=== PATIENT | male | born 1960 | race African-American/Black ===

== ENCOUNTER 2018-06-12 19:31 | Inpatient (IN) | payer OTHER ==
[~2018-06-12 19:31] MED LIST: ISOVUE-370 76%-LOCM 1 ML ONE
[2018-06-12] MEDS ORDERED: Magnesium 2 GM/NS 0.9% 100 ML 2 GM in Premix Bag 1 BAG IVPB ONE (20:30)
[2018-06-12] MEDS ORDERED: Magnesium Sulfate 2 GM/100 ML BAG ONE (20:32)
[2018-06-12] MEDS ORDERED: Dexamethasone 4 mg/ml Vial SLOW IVP SCH (21:00)
[2018-06-12 22:47] VITALS: BMI 16.1
[2018-06-12] MEDS ORDERED: Ondansetron ODT 4 MG TAB SL PRN (22:51)
[2018-06-12] MEDS ORDERED: Ondansetron HCl/PF 4 MG/2 ML Vial IVP PRN (22:51)
[2018-06-12] MEDS ORDERED: Sodium Chloride 0.9% 1,000 ML IV SCH (22:51)
--- NOTE | 2018-06-12 22:55 | CT ---
CT CHEST WITH CONTRAST: 06/12/18 HISTORY: Shortness of breath. Pneumonia. COMPARISON: Chest radiograph same day. FINDINGS: There is moderate background emphysema. There is volume loss in the right middle lobe with concern fo r underlying large mass. This is increased from the comparison in 2016 CT which measured approximatel y 1.6 cm in size. The majority of the right middle lobe collapse is due to infiltrative malignancy. T here is some calcification within this mass. This lesion measures 5.1 x 6.2 cm on axial image 38. Th ere is endobronchial extension of tumor. There are large mediastinal lymph nodes. Right paratracheal lymph nodes measure up to 3.2 x 3 cm in size. An index subcarinal lymph node measures up to 3.3 x 2.5 cm. Axial image 27. There is a mass in the left lobe of the liver with extension and chronic peripheral enhancement measu ring 3.6 x 3.4 cm axial image 56. Posttreatment changes of the left upper lobe. Small effusion on the right. Pulmonary trunk upper limi ts of normal measuring just under 3 cm in size. No thoracic spine compression fracture. There is a healing right 8th rib fracture. No prior left 3rd and 4th rib removal from thoracotomy changes. IMPRESSION: Large right middle lobe malignant process with index lesion measured as above. There is also extensiv e large mediastinal adenopathy as well as hepatic metastatic disease. POS: [facility]
[2018-06-13] MEDS ORDERED: Senokot 8.6 MG TAB PO PRN (01:40)
[2018-06-13] MEDS ORDERED: Mag-Al 1200 mg/1200 mg/30 ML UDCUP PO PRN (01:40)
[2018-06-13] MEDS ORDERED: Calcium Carbonate 500 MG ChewTAB PO PRN (01:40)
[2018-06-13] MEDS ORDERED: Milk Of Magnesia 30 ML UDCUP PO PRN (01:40)
[2018-06-13] MEDS ORDERED: Nitroglycerin 0.4 MG TAB (25 Tab Bottle) PO PRN (01:40)
[2018-06-13] MEDS ORDERED: hydrALAZINE 20 MG/ML VIAL SLOW IVP PRN (01:44)
[2018-06-13] MEDS ORDERED: Sodium Chloride 0.9% 1,000 ML IV SCH ×2 (01:45→08:00)
--- NOTE | 2018-06-13 02:03 | HP ---
DATE OF ADMISSION: 06/12/2018 Patient was seen and examined on 06/12/2018. CHIEF COMPLAINT: Fever, chills with cough of 3 days' duration. 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 Over the last three days, patient developed gradual worsening cough that was productive of thick-faith sputum. He felt feverish and had chills. He did not record his temperature. He also had shortness of breath and wheezing. Shortness of breath was worse on moderate exertion. He also had some gener alized weakness and fatigue. He has lost approximately 20-30 pounds over the last 6 months to a year per patient report. His appetite is normal. PAST MEDICAL HISTORY: 1. Coronary artery disease, status post non-ST elevation [place] requiring stent placement in 10/2011. 2. Left upper lobe adenocarcinoma as discussed above, status post left upper lobectomy by Dr. Qureshi in 2011. 3. GERD. 4. History of tobacco abuse. PAST SURGICAL HISTORY: 1. Cardiac catheterization. 2. Left upper lobectomy. ALLERGIES: No known drug allergies. CURRENT HOME MEDICATIONS: He is unable to recall any of his home medications. Family to bring accur ate list of medications. SOCIAL HISTORY: Patient currently smokes up to half pack a day. He drinks alcohol socially. He has a history of cannabis abuse in the past. FAMILY HISTORY: Positive for hypertension. Cancer also runs in his family. REVIEW OF SYSTEMS: The following complete review of systems was negative, unless otherwise mentioned in the HPI or below: Constitutional: Weight loss or gain, ability to conduct usual activities. Sk in: Rash, itching. Eyes: Double vision, pain. ENT/Mouth: Nose bleeding, neck stiffness, pain, te nderness. Cardiovascular: Palpitations, dyspnea on exertion, orthopnea. Respiratory: Shortness of breath, wheezing, cough, hemoptysis, fever, or night sweats. Gastrointestinal: Poor appetite, abdo gina pain, heartburn, nausea, vomiting, constipation, or diarrhea. Genitourinary: Urgency, frequen cy, dysuria, nocturia. Musculoskeletal: Pain, swelling. Neurologic/Psychiatric: Anxiety, depressi on. Allergy/Immunologic: Skin rash, bleeding tendency. PHYSICAL EXAMINATION: VITAL SIGNS: In the emergency room showed temperature 99.1, respiration 30, pulse rate of 115 with a blood pressure 167/109 with O2 saturation of 89% on room air. GENERAL: A 58-year-old male, thin built, in no apparent distress. HEENT: Head atraumatic, normocephalic. Sclerae anicteric. Moist mucous membrane. No oral lesion. NECK: Supple, no JVD appreciated. No carotid bruit. LUNGS: Showed bilateral rhonchi with scattered rales. No wheezing appreciated. There was mild acce ssory muscle use. Healed scar from left upper lobectomy noted. HEART: S1, S2 present. Tachycardic. No rubs or gallops. SKIN: Warm and dry. ABDOMEN: Soft, nontender, bowel sounds present. EXTREMITIES: No edema or calf tenderness. NEUROLOGIC: Grossly nonfocal, moves all four extremities. PSYCHIATRY: Alert, awake, oriented x3. LYMPH NODES: No palpable lymph nodes in the neck. PERIPHERAL VASCULAR: Radial pulses palpable bilaterally. MUSCULOSKELETAL: No joint swelling or tenderness. LABORATORY AND X-RAY FINDINGS: CBC showed WBC 5.9 with hemoglobin 16.1, hematocrit 44.8, platelet 15 7. Chemistry showed sodium 131, potassium 4.8, chloride 100, bicarb 19, BUN 5, creatinine 0.68. BNP was 136. Troponin was negative. Urinalysis was negative for wbc, bacteria. Blood cultures have be en sent and pending at this time. CT scan of the lung by my review showed large right middle lobe malignant process with extensive larg e mediastinal adenopathy, hepatic metastatic disease with infiltrate. Chest x-ray by my review showed right middle lobe infiltrate/atelectasis with small pleural effusion. IMPRESSION: 1. Sepsis secondary to community-acquired pneumonia, suspected pneumococcus. 2. Abnormal CT scan of the chest with right middle lobe malignant process with mediastinal adenopath y as well as hepatic mass. Postobstructive pneumonia is most likely suspected. 3. Ongoing tobacco abuse. 4. Coronary artery disease, status post stent placement to the proximal circumflex as well as distal right coronary artery in 2011. 5. Acute hypoxic respiratory failure secondary to #1. 6. Significant weight loss more than 20-30 pounds. 7. History of left upper lobe poorly differentiated invasive lung adenocarcinoma, status post left u pper lobectomy as well as chemotherapy per Dr. Lerma. PLAN: 1. Patient will be monitored on the medical floor. Pulmonary and Oncology team will be consulted. We will start him on Zosyn and Levaquin. 2. Breathing treatments. O2 supplementation. A.m. labs. Walking program. Consult dietitian. 3. Plan of care was discussed with the patient in detail. He stated understanding. 4. Code status confirmed with the patient. FULL CODE. 5. Palliative care team will be consulted as well.
[2018-06-13] MEDS: Piperacillin/Tazobactam 3.375 GM in Sodium Chloride 0.9% 100 ML IVPB SCH ×4 (03:08→20:36)
[2018-06-13 04:33] LABS: #Lymphocytes 0.6 thou/uL (1.20-3.40); #Monocytes 0.2 thou/uL (0.11-0.59); #Neutrophils 4.1 thou/uL (1.40-6.50); %Basophils 0.2 % (0.0-1.0); %Eosinophils 0.2 % (0.0-10.0); %Lymphocytes 12.1 % (21.0-51.0); %Monocytes 4.9 % (0.0-10.0); %Neutrophils 82.6 % (42.0-75.0); Hemoglobin 14.9 g/dL (14.0-18.0); Mean Corpuscular HGB CONC 34.6 g/dL (32.0-36.0); Mean Corpuscular Hemoglobin 31.8 pg (27.0-31.0); Mean Corpuscular Volume 91.9 fL (78.0-98.0); Mean Platelet Volume 8.1 fL (7.4-10.4); Platelet Count 159 thou/uL (130-400); RBC Distribution Width 12.9 % (11.5-14.5); Red Blood Cell (RBC) Count 4.68 mill/uL (4.70-6.10)
[2018-06-13 04:39] LABS: Anion Gap 12 mmol/L (10-20); BUN (Urea Nitrogen) 5 mg/dL (8.4-25.7); Calc. Creatinine Clearance 77 mL/min (70-130); Calcium 8.5 mg/dL (7.8-10.44); Carbon Dioxide 26 mmol/L (22-29); Chloride 98 mmol/L (98-107); Estimated GFR-MDRD Greater than 90; Glucose 208 mg/dL (70-105); Potassium 4.2 mmol/L (3.5-5.1); Sodium 132 mmol/L (136-145)
[2018-06-13] MEDS: Docusate 100 MG CAP PO SCH ×2 (07:49→20:37)
[2018-06-13] MEDS: Famotidine 20 MG TAB PO SCH ×3 (07:49→20:36)
[2018-06-13] MEDS: Aspirin 81 mg Enteric Coated Tablet PO SCH ×2 (07:49→13:58)
[2018-06-13] MEDS ORDERED: Lidocaine 4% PF 5 ML AMP NEB SCH (08:00)
[2018-06-13] MEDS ORDERED: Chloraseptic Spray 180 ml Bottle PO PRN (08:04)
[2018-06-13] MEDS ORDERED: Eucerin (Mineral Oil/Petrolatum,White) 30 gm Jar TOP PRN (08:04)
[2018-06-13] MEDS ORDERED: Temazepam 15 MG CAP PO PRN (08:04)
[2018-06-13] MEDS ORDERED: Artificial Tears 18 DROP/0.9 ML EA EYE PRN (08:04)
[2018-06-13] MEDS ORDERED: Loratadine 10 MG TAB PO PRN (08:04)
[2018-06-13] MEDS ORDERED: Loperamide HCl 2 MG CAP PO PRN (08:04)
[2018-06-13] MEDS ORDERED: Acetaminophen 325 MG TAB PO PRN (08:04)
[2018-06-13] MEDS ORDERED: Sodium Chloride 0.65% Nasal 44 ML BOT EA NARE PRN (08:04)
[2018-06-13] MEDS ORDERED: HYDROcodone/Acetaminophen 5/325 mg Tablet PO PRN (08:04)
[2018-06-13] MEDS ORDERED: Diabetic Tussin 200 MG/10 ML UDCUP PO PRN (08:04)
[2018-06-13] MEDS ORDERED: Ondansetron HCl/PF 4 MG/2 ML Vial IVP PRN ×2 (08:06→10:45)
[2018-06-13] MEDS ORDERED: Ondansetron ODT 4 MG TAB PO PRN (08:06)
--- NOTE | 2018-06-13 08:08 | CON ---
DATE OF CONSULTATION: 06/13/2018 CONSULTING PHYSICIAN: Dr. Kunz REASON FOR CONSULTATION: Lung mass. HISTORY OF PRESENT ILLNESS: The patient is a 58-year-old male who presents with subacute weight loss , productive cough and generalized fatigue. He underwent a CT last night which showed collapse of th e right middle lobe with significant mediastinal lymphadenopathy and liver metastasis. He has a prev ious history of lung cancer from 2011. At that time, he was seen by Dr. Rothman and Dr. Qureshi. He had a left upper lobe lung cancer with chest wall invasion and required left lower lobe decortication, i n addition, a left upper lobectomy and partial chest wall resection. It is not clear to me what type of Oncology follow up he got afterward. The patient has lost a significant amount of weight in the last several months. He is currently 5 feet 11 inches, weighs 109 pounds. PAST MEDICAL HISTORY: 1. Lung cancer - adenocarcinoma. 2. Coronary artery disease. 3. Gastroesophageal reflux. 4. Tobacco abuse. PAST SURGICAL HISTORY: Cardiac catheterization. Left upper lobectomy. ALLERGIES: None. MEDICATIONS: The patient says he thinks he is on a blood thinner, but he has not taken it in several days. Remainder of medications are not known at this time. SOCIAL HISTORY: He is a half pack per day smoker. He drinks alcohol socially. He has used marijuan a in the past. FAMILY MEDICAL HISTORY: Remarkable for hypertension and cancer. REVIEW OF SYSTEMS: Unremarkable except for the weight loss and failure to thrive. PHYSICAL EXAMINATION: VITAL SIGNS: Temperature 98.4, pulse 86, respiration 16, O2 sat 95% on 1.5 liters, blood pressure 14 4/66. GENERAL: He is awake and alert and in no distress. HEENT: Remarkable for bitemporal wasting. NECK: Without adenopathy or JVD. LUNGS: Clear breath sounds without wheezing or rhonchi. There are a few scattered crackles in the r ight mid chest. CARDIAC: S1, S2, slightly tachycardic, 2/6 systolic murmur left sternal border. ABDOMEN: Soft, nontender. I cannot feel his liver edge. EXTREMITIES: No clubbing, cyanosis, or edema. LABORATORY AND X-RAY FINDINGS: White blood cell count 5, hematocrit 43, platelet count 159. Sodium 132, potassium 4.2, chloride 98, CO2 26, BUN 5, creatinine 0.7, glucose 208. CT: I reviewed the CT personally. He has almost total collapse of the right middle lobe. He has lucas bcarinal lymphadenopathy, he has right peritracheal lymphadenopathy. There is a metastatic lesion pr esent in the left lobe of the liver. ASSESSMENT: 1. Recurrent versus new lung cancer. PLAN: 1. Bronchoscopy with biopsy today. Discussed risk with the patient and he is agreeable to proceed. 2. Check coagulation parameters. 3. Further disposition to follow.
[2018-06-13 08:31] LABS: PTT 29.8 SEC (22.9-36.1); Prothrombin Time 12.8 SEC (12.0-14.7)
[2018-06-13] MEDS ORDERED: Dexamethasone 4 mg/ml Vial SLOW IVP SCH (09:00)
[2018-06-13] MEDS ORDERED: Heparin 5,000 UNITS/ML VIAL SC SCH (09:00)
[2018-06-13] MEDS ORDERED: Fentanyl 100 MCG/2 ML VIAL ONE (09:23)
[2018-06-13] MEDS ORDERED: Lidocaine 1% (PF) 30 ML VIAL ONE (09:32)
[2018-06-13] MEDS ORDERED: PROPOFOL 200 MG/20 ML VIAL ONE (10:21)
[2018-06-13] MEDS ORDERED: Succinylcholine Chloride 20 MG/ML 10 ml SYRINGE FS ONE (10:21)
[2018-06-13] MEDS ORDERED: PHENYLEPHRINE-NS 100 MCG/ML 10 ML SYRINGE ONE (10:21)
[2018-06-13] MEDS ORDERED: Esmolol 100 MG/10 ML VIAL ONE (10:21)
[2018-06-13] MEDS ORDERED: Dexamethasone 20 MG/5 ML VIAL ONE (10:21)
[2018-06-13] MEDS ORDERED: Lidocaine 1% PF 5 ML VIAL ONE (10:21)
[2018-06-13] MEDS ORDERED: Ondansetron HCl/PF 4 MG/2 ML Vial ONE (10:21)
[2018-06-13] MEDS ORDERED: Promethazine HCl 25 MG/ML VIAL SLOW IVP PRN (10:45)
[2018-06-13] MEDS ORDERED: Promethazine HCl 25 MG/ML VIAL IM PRN (10:45)
--- NOTE | 2018-06-13 11:18 | OP ---
PROCEDURE: Fiberoptic bronchoscopy. PREOPERATIVE DIAGNOSIS: Right middle lobe lung mass. POSTOPERATIVE DIAGNOSIS: Right middle lobe lung mass. ANESTHESIA: General endotracheal. DESCRIPTION OF PROCEDURE: The patient signed the informed consent prior to the procedure. He unders tood the risks involved including bleeding, infection, and accidental lung puncture. He agreed to pr oceed. The patient was placed on cardiopulmonary monitoring. He was intubated with an 8.0 endotracheal tube by Anesthesia. An adaptor was placed on the endotracheal tube and he was placed on a ventilator. T he bronchoscope was placed in the endotracheal tube. The sharee was sharp. The left mainstem bronch us was normal in appearance. The left upper lobe was absent due to previous surgery. The left lower lobe was normal in appearance aside from some mucoid secretions. The right mainstem bronchus was no rmal to the level of the bronchus intermedius. The right upper lobe was normal in appearance. The r ight lower lobe was normal in appearance. There was a pedunculated mass in the right middle lobe. T his mass was necrotic and was obstructing about 90% of the lumen. A series of endobronchial biopsies were obtained and sent for pathology. Brushings were also obtained. Washings were then obtained. He was sent to the recovery area in stable condition.
--- NOTE | 2018-06-13 13:06 | PDOC.PN ---
- Subjective Encounter Start Date: 06/13/18 Encounter Start Time: 13:03 -: old records requested/rev Patient seen and examined. No overnight events pt now feels better, he walked well, he has very poor apatite, - Objective Resuscitation Status: Resuscitation Status FULL:Full Resuscitation MAR Reviewed: Yes Vital Signs & Weight: Vital Signs (12 hours) Temp Pulse Resp BP Pulse Ox 06/13/18 12:16 86 16 97 06/13/18 11:45 98.0 F 84 20 134/79 98 06/13/18 08:00 98.4 F 86 16 95 06/13/18 06:18 95 06/13/18 06:16 86 16 95 06/13/18 04:40 98.4 F 89 16 144/66 H 96 06/13/18 02:30 89 16 96 Weight Weight 109 lb 1 oz Result Diagrams: 06/13/18 04:00 06/13/18 04:00 Radiology Reviewed by me: Yes (CT chest) Phys Exam - Physical Examination Constitutional: NAD HEENT: PERRLA, moist MMs, sclera anicteric Neck: no JVD, supple Respiratory: no wheezing, no rales, no rhonchi right side rales, reduced air entry both side Cardiovascular: RRR, no significant murmur, no rub Gastrointestinal: soft, non-tender, no distention, positive bowel sounds Musculoskeletal: no edema, pulses present Neurological: non-focal, normal sensation Lymphatic: no nodes Psychiatric: normal affect Skin: no rash, normal turgor Dx/Plan (1) Acute respiratory failure with hypoxia Code(s): J96.01 - ACUTE RESPIRATORY FAILURE WITH HYPOXIA Status: Acute (2) Liver metastasis Code(s): C78.7 - SECONDARY MALIG NEOPLASM OF LIVER AND INTRAHEPATIC BILE DUCT Status: Acute (3) Mass of middle lobe of right lung Code(s): R91.8 - OTHER NONSPECIFIC ABNORMAL FINDING OF LUNG FIELD Status: Acute (4) Mediastinal lymphadenopathy Code(s): R59.0 - LOCALIZED ENLARGED LYMPH NODES Status: Acute (5) Postobstructive pneumonia Code(s): J18.9 - PNEUMONIA, UNSPECIFIED ORGANISM Status: Acute (6) CAD (coronary artery disease) Code(s): I25.10 - ATHSCL HEART DISEASE OF [place] CORONARY ARTERY W/O ANG PCTRS Status: Chronic (7) COPD (chronic obstructive pulmonary disease) Status: Chronic (8) H/O malignant neoplasm of lung Code(s): Z85.118 - PERSONAL HISTORY OF MALIGNANT NEOPLASM OF BRONCHUS AND LUNG Status: Chronic Comment: left upper lobe adenocarcinoma, s/p lobectomy in 2012 (9) Protein-calorie malnutrition, moderate Code(s): E44.0 - MODERATE PROTEIN-CALORIE MALNUTRITION Status: Chronic (10) Tobacco abuse Code(s): Z72.0 - TOBACCO USE Status: Chronic - Plan cont current plan of care, plan discussed w/ family, continue antibiotics, respiratory therapy * continue current IV antibiotics as below, zosyn and levaquin * add mucinex * continue duoneb * nutritional supplement * medication reviewed as below * symptomatic treatment * s/p bronchoscopy and biopsy, follow on pathology report. * discussed with family bedside Review of Systems - Review of Systems Constitutional: weakness. negative: fever, chills, sweats, malaise, other Eyes: negative: Pain, Vision Change, Conjunctivae Inflammation, Eyelid Inflammation, Redness, Other ENT: negative: Ear Pain, Ear Discharge, Nose Pain, Nose Discharge, Nose Congestion, Mouth Pain, Mouth Swelling, Throat Pain, Throat Swelling, Other Respiratory: Cough, Shortness of Breath, SOB with Excertion Cardiovascular: negative: chest pain, palpitations, orthopnea, paroxysmal nocturnal dyspnea, edema, light headedness, other Gastrointestinal: negative: Nausea, Vomiting, Abdominal Pain, Diarrhea, Constipation, Melena, Hematochezia, Other Genitourinary: negative: Dysuria, Frequency, Incontinence, Hematuria, Retention , Other Musculoskeletal: negative: Neck Pain, Shoulder Pain, Arm Pain, Back Pain, Hand Pain, Leg Pain, Foot Pain, Other Skin: negative: Rash, Lesions, Colin, Bruising, Other - Medications/Allergies Allergies/Adverse Reactions: Allergies Allergy/AdvReac Type Severity Reaction Status Date / Time No Known Allergies Allergy Verified 06/12/18 23:29 Medications: Current Medications Acetaminophen (Tylenol) 650 mg PO Q4H PRN PRN Reason: Headache/Fever or Mild Pain Hydrocodone Bitart/Acetaminophen ([place] 5/325) 1 tab PO Q4H PRN PRN Reason: Moderate Pain (4-6) Al Hydroxide/Mg Hydroxide (Maalox) 30 ml PO Q6H PRN PRN Reason: Heartburn or Indigestion Albuterol/Ipratropium (Duoneb) 3 ml NEB [id number] [facility] Last Admin: 06/13/18 12:16 Dose: 3 ml Artificial Tears (Tears Naturale) 0 drop EA EYE PRN PRN PRN Reason: Dry Eyes Aspirin (Ecotrin) 81 mg PO DAILY [facility] Last Admin: 06/13/18 07:49 Dose: Not Given Calcium Carbonate (Tums) 1,000 mg PO Q4H PRN PRN Reason: Heartburn or Indigestion Docusate Sodium (Colace) 100 mg PO BID [facility] Last Admin: 06/13/18 07:49 Dose: Not Given Famotidine (Pepcid) 20 mg PO BID [facility] Last Admin: 06/13/18 07:49 Dose: Not Given Fentanyl (Pacu-Sublimaze) 50 mcg SLOW IVP Q10MIN PRN PRN Reason: Moderate to Severe Pain (6-10) Stop: 06/13/18 13:46 Guaifenesin (Mucinex) 600 mg PO Q12HR [facility] Guaifenesin (Robitussin Sf) 200 mg PO Q4H PRN PRN Reason: Cough Hydralazine HCl (Apresoline) 10 mg SLOW IVP Q4H PRN PRN Reason: SBP Greater Than 180 Levofloxacin 750 mg/ Device 150 mls @ 100 mls/hr IVPB Q24HR [facility] Piperacillin Sod/Tazobactam (Sod 3.375 gm/ Sodium Chloride) 100 mls @ 200 mls/ hr IVPB 0200,0800,1400,2000 [facility] Last Admin: 06/13/18 07:48 Dose: 100 mls Loperamide HCl (Imodium) 2 mg PO PRN PRN PRN Reason: Diarrhea/Loose Stools Loratadine (Claritin) 10 mg PO DAILYPRN PRN PRN Reason: Sinus Symptoms Magnesium Hydroxide (Milk Of Magnesium) 30 ml PO DAILYPRN PRN PRN Reason: Constipation Mineral Oil/White Petrolatum (Eucerin Cream) 0 gm TOP BIDPRN PRN PRN Reason: Dry Skin Nitroglycerin (Nitrostat) 0.4 mg PO Q5MIN PRN PRN Reason: Chest Pain Ondansetron HCl (Zofran Odt) 4 mg PO Q6H PRN PRN Reason: Nausea/Vomiting Ondansetron HCl (Zofran) 4 mg IVP Q6H PRN PRN Reason: Nausea/Vomiting Ondansetron HCl (Pacu-Zofran) 4 mg IVP ONE PRN PRN Reason: Nausea/Vomiting Stop: 06/13/18 13:45 Phenol (Chloraseptic [place] 180 Ml Bot) 0 ml PO PRN PRN PRN Reason: Sore Throat Promethazine HCl (Pacu-Phenergan) 6.25 mg SLOW IVP ONE PRN PRN Reason: Nausea/Vomiting Stop: 06/13/18 13:45 Promethazine HCl (Pacu-Phenergan) 6.25 mg IM ONE PRN PRN Reason: Nausea/Vomiting Stop: 06/13/18 13:45 Saccharomyces Boulardii (Florastor) 250 mg PO DAILY JOSE F Senna (Senokot) 2 tab PO HSPRN PRN PRN Reason: Constipation Sodium Chloride ([place] Nasal [place] 0.65%) 0 ml EA NARE QIDPRN PRN PRN Reason: Nasal Congestion Temazepam (Restoril) 15 mg PO HSPRN PRN PRN Reason: Insomnia
[2018-06-13] MEDS: Saccharomyces boulardii 250 MG CAP PO SCH (13:58)
[2018-06-13] MEDS: guaiFENesin ER 600 MG TAB PO SCH ×2 (13:58→20:36)
[2018-06-13 16:46] LABS: Bilirubin Negative (Negative); Blood, Urine Negative (Negative); Clarity CLEAR (Clear); Glucose, Urine (Dipstick) Negative (Negative); Leukocyte Negative (Negative); Nitrite Negative (Negative); Protein, Urine (Dipstick) 30 mg/dL (Neg-Trace); Specific Gravity, Urine 1.009 (1.002-1.036); Urobilinogen 0.2 mg/dL (0.2-1.0)
[2018-06-13 16:47] LABS: Bacteria/HPF None Seen HPF (None Seen); Hyaline Casts/LPF 0-3 HYALINE CAST LPF (0-3 Hyaline); RBC/HPF 0-3 HPF (0-3); Squamous Epithelial None Seen HPF (0-3); WBC/HPF None Seen HPF (0-3)
--- NOTE | 2018-06-13 21:21 | CON ---
DATE OF CONSULTATION: 06/13/2018 REASON FOR CONSULTATION: Lung mass. HISTORY OF PRESENT ILLNESS: Mr. Troncoso is pleasant 58-year-old -[place]ong[place]ian gentleman with a medic al history of poorly-differentiated invasive adenocarcinoma of the left upper lobe in 2011. He under went a left lobectomy and chemotherapy, he was lost to follow up and has not been seen in the clinic since that time. Over the past several months, he began to lose weight. He was having some fatigue and cough. This past Monday, his cough progressed and he was having some worsening shortness of pedro th, so presented to the emergency room for evaluation. Chest CT showed right middle lobe lesion janell uring 5.1 x 6.2 cm. There was endobronchial extension of the tumor. He had mediastinal lymphadenopa thy. There was a right peritracheal lymph node that measured 3.2 x 3 cm. He also had a subcarinal l ymph node measuring 3.3 x 2.2 cm. There was a mass in the left lobe of the liver measuring 3.[address] Benitez performed a bronchoscopy with biopsy this morning, which is currently pending. PAST MEDICAL HISTORY: 1. Stage II B nonsmall cell lung cancer status post lobectomy and chemo in 2011. 2. Coronary artery disease. 3. Gastroesophageal reflux disease. 4. Tobacco use. PAST SURGICAL HISTORY: 1. Left upper lobe lobectomy. 2. Cardiac catheterization. ALLERGIES: No known drug allergies. HOME MEDICATIONS: None. FAMILY HISTORY: Noncontributory. SOCIAL HISTORY: Smokes 3-4 cigarettes daily, drinks social alcohol, denies illicit drug use. REVIEW OF SYSTEMS: Constitutional: No fever, chills, night sweats. Positive for 20-pound weight lo ss over the last several months. Eyes: No blurred or double vision. ENT: No pain, hoarseness, sor e throat, dysphagia. Cardiovascular: No chest pain, palpitations or syncope. Respiratory: Positiv e shortness of breath, dyspnea on exertion and cough, no hemoptysis. Gastrointestinal: No nausea, v omiting, diarrhea, constipation or abdominal pain. Genitourinary: No dysuria or hematuria. Musculo skeletal: No joint or back pain. Skin: No rash or pruritus. Hematologic: No bleeding, bruising o r clotting. Neurologic: Positive for weakness, no headache, numbness, tingling or seizure activity. Psychiatric: No anxiety or depression. PHYSICAL EXAMINATION: VITAL SIGNS: Temperature is 98.0, pulse is 86, respiratory rate 16, BP is 134/79. He is 97% on 2 li ters. GENERAL: Thin -Mongolian male in no acute distress. HEENT: Normocephalic, atraumatic. Pupils are equal and reactive to light. Sclerae are injected. NECK: Supple. CARDIOVASCULAR: Regular rate and rhythm. LUNGS: Clear to auscultation. ABDOMEN: Soft, nontender, bowel sounds are positive. EXTREMITIES: No clubbing, cyanosis or edema. SKIN: No rash. HEMATOLOGIC: No petechia or purpura. NEUROLOGICAL: Nonfocal. PSYCHIATRIC: The patient is alert and oriented and appropriate. PERTINENT LABORATORY AND X-RAYS: Current WBCs 5.0, hemoglobin 14.9, hematocrit 43, platelet count 15 9,000. He has got 83% neutrophils, 12% lymphocytes. PT is 12.8, INR is 1.0, PTT is 29.8. Sodium is 132, potassium 4.2, chloride 98, CO2 is 26, BUN is 5, creatinine 0.73, calcium is 8.5, total bilirub in is 0.6, AST is 85, ALT is 54, alkaline phosphatase is 128. BNP is 136.5. Serum total protein is 8.8, albumin 3.6, globulin 5.2. ASSESSMENT: 1. Metastatic lung cancer with liver involvement. 2. History of stage II B nonsmall cell lung cancer status post lobectomy, chemo. DISCUSSION: The patient has had a bronchoscopy with biopsy of his lung lesion that is currently pend ing, was sent for tumor mutations. The patient will have a brain MRI to rule out metastatic disease in the brain. He is a candidate for outpatient chemotherapy. Further recommendations will be based on pathology. Thank you for the consult.
[2018-06-14] MEDS: Piperacillin/Tazobactam 3.375 GM in Sodium Chloride 0.9% 100 ML IVPB SCH ×4 (00:47→20:28)
[2018-06-14 04:18] LABS: #Lymphocytes 1.4 thou/uL (1.20-3.40); #Monocytes 0.9 thou/uL (0.11-0.59); #Neutrophils 6.2 thou/uL (1.40-6.50); %Basophils 0.3 % (0.0-1.0); %Eosinophils 0.1 % (0.0-10.0); %Lymphocytes 16.5 % (21.0-51.0); %Monocytes 10.8 % (0.0-10.0); %Neutrophils 72.3 % (42.0-75.0); Hemoglobin 13.1 g/dL (14.0-18.0); Mean Corpuscular HGB CONC 33.8 g/dL (32.0-36.0); Mean Corpuscular Hemoglobin 31.1 pg (27.0-31.0); Mean Platelet Volume 8.2 fL (7.4-10.4); Platelet Count 155 thou/uL (130-400); Red Blood Cell (RBC) Count 4.21 mill/uL (4.70-6.10); White Blood Cell (WBC) Count 8.6 thou/uL (4.8-10.8)
[2018-06-14 04:42] LABS: ALT (SGPT) 35 U/L (8-55); AST (SGOT) 54 U/L (5-34); Albumin 3.1 g/dL (3.5-5.0); Alkaline Phosphatase 93 U/L (40-150); Anion Gap 15 mmol/L (10-20); BUN (Urea Nitrogen) 9 mg/dL (8.4-25.7); Bilirubin, Total 0.3 mg/dL (0.2-1.2); Calc. Creatinine Clearance 78 mL/min (70-130); Calcium 8.3 mg/dL (7.8-10.44); Carbon Dioxide 23 mmol/L (22-29); Chloride 100 mmol/L (98-107); Estimated GFR-MDRD Greater than 90; Globulin 3.9 g/dL (2.4-3.5); Glucose 111 mg/dL (70-105); Potassium 3.7 mmol/L (3.5-5.1); Sodium 134 mmol/L (136-145)
[2018-06-14] MEDS: Famotidine 20 MG TAB PO SCH ×2 (07:43→20:29)
[2018-06-14] MEDS: Aspirin 81 mg Enteric Coated Tablet PO SCH (07:44)
[2018-06-14] MEDS: Saccharomyces boulardii 250 MG CAP PO SCH (07:44)
[2018-06-14] MEDS: guaiFENesin ER 600 MG TAB PO SCH ×2 (07:44→20:29)
[2018-06-14] MEDS: Docusate 100 MG CAP PO SCH ×2 (07:51→20:29)
--- NOTE | 2018-06-14 08:30 | PRG ---
DATE OF SERVICE: 06/14/2018 The patient feels better today. He is not having as much cough. PHYSICAL EXAMINATION: VITAL SIGNS: Temperature is 98.8, pulse 86, respirations 16, O2 saturation 98%, blood pressure 134/7 4. HEENT: Unremarkable except for bitemporal wasting. NECK: No JVD. LUNGS: Poor air movement on the right, clear on the left. CARDIAC: S1 and S2 regular. ABDOMEN: Soft, nontender. EXTREMITIES: No clubbing, cyanosis, or edema. LABORATORY DATA: White blood cell count 8.6, hematocrit 38.7, platelet count 155. Sodium 134, potas sium 3.7, chloride 100, CO2 23, BUN 9, creatinine 0.7, glucose 111. ASSESSMENT: 1. Lung cancer with mediastinal lymph node and liver involvement. The lung biopsy results from bron choscopy yesterday are pending. 2. Postobstructive pneumonia. PLAN: The patient will continue IV antibiotics. We are waiting pathology results for further dispos ition. Clearly if this is lung cancer, this will have to be treated with chemotherapy and possibly r adiation as he is not a surgical candidate given that this is stage IV disease.
[2018-06-14] MEDS ORDERED: Lorazepam 2 MG/ML VIAL ONE (08:38)
[2018-06-14] MEDS ORDERED: Lorazepam 2 MG/ML VIAL SLOW IVP SCH (09:15)
--- NOTE | 2018-06-14 10:39 | MRI ---
MRI BRAIN WITH AND WITHOUT IV CONTRAST: HISTORY: Metastatic lung cancer. FINDINGS: Exam is limited due to motion artifact. No restricted diffusion is seen. There are a few scattered foci of T2 prolongation in the periventricular white matter, consistent with mild chronic small vesse l ischemic disease. No evidence of infarct, hemorrhage, mass, midline shift, or abnormal extraaxial fluid collections is seen. No abnormal post contrast enhancement is noted. There is mucosal disease in the paranasal sinuses. IMPRESSION: No evidence of intracranial metastatic disease. POS: [facility]
--- NOTE | 2018-06-14 10:47 | PDOC.PN ---
- Subjective Encounter Start Date: 06/14/18 Encounter Start Time: 10:25 Patient seen and examined. No new complaints. No overnight events pt had claustrophobia with MRI so ativan was given - Objective Resuscitation Status: Resuscitation Status FULL:Full Resuscitation MAR Reviewed: Yes Vital Signs & Weight: Vital Signs (12 hours) Temp Pulse Resp BP Pulse Ox 06/14/18 08:00 98.8 F 86 16 06/14/18 07:07 98.8 F 86 16 137/74 98 06/14/18 06:49 96 06/14/18 06:22 90 16 88 L 06/13/18 23:59 90 16 97 Weight Admit Weight 109 lb Weight 109 lb 1 oz Result Diagrams: 06/14/18 03:39 06/14/18 03:39 Radiology Reviewed by me: Yes (MRI brain - no mets) Phys Exam - Physical Examination Constitutional: NAD cachectic HEENT: PERRLA, moist MMs Neck: no JVD, supple Respiratory: no wheezing, no rales, no rhonchi reduced air entry Cardiovascular: RRR, no significant murmur, no rub Gastrointestinal: soft, non-tender, no distention, positive bowel sounds Musculoskeletal: no edema, pulses present Neurological: non-focal, normal sensation, moves all 4 limbs Lymphatic: no nodes Psychiatric: normal affect, A&O x 3 Skin: no rash, normal turgor Dx/Plan (1) Acute respiratory failure with hypoxia Code(s): J96.01 - ACUTE RESPIRATORY FAILURE WITH HYPOXIA Status: Acute (2) Liver metastasis Code(s): C78.7 - SECONDARY MALIG NEOPLASM OF LIVER AND INTRAHEPATIC BILE DUCT Status: Acute (3) Mass of middle lobe of right lung Code(s): R91.8 - OTHER NONSPECIFIC ABNORMAL FINDING OF LUNG FIELD Status: Acute (4) Mediastinal lymphadenopathy Code(s): R59.0 - LOCALIZED ENLARGED LYMPH NODES Status: Acute (5) Postobstructive pneumonia Code(s): J18.9 - PNEUMONIA, UNSPECIFIED ORGANISM Status: Acute (6) CAD (coronary artery disease) Code(s): I25.10 - ATHSCL HEART DISEASE OF [place] CORONARY ARTERY W/O ANG PCTRS Status: Chronic (7) COPD (chronic obstructive pulmonary disease) Status: Chronic (8) H/O malignant neoplasm of lung Code(s): Z85.118 - PERSONAL HISTORY OF MALIGNANT NEOPLASM OF [place] AND LUNG Status: Chronic Comment: left upper lobe adenocarcinoma, s/p lobectomy in 2012 (9) Protein-calorie malnutrition, moderate Code(s): E44.0 - MODERATE PROTEIN-CALORIE MALNUTRITION Status: Chronic (10) Tobacco abuse Code(s): Z72.0 - TOBACCO USE Status: Chronic - Plan cont current plan of care, continue antibiotics, manager social responsibility, respiratory therapy * continue zosyn and levaquin * follow up on culture * nutritional support * follow up on pathology report * as per oncology, if cancer then pt is candidate for chemo +- radiation * medication reviewed as below * symptomatic treatment. Review of Systems - Review of Systems Eyes: negative: Pain, Vision Change, Conjunctivae Inflammation, Eyelid Inflammation, Redness, Other ENT: negative: Ear Pain, Ear Discharge, Nose Pain, Nose Discharge, Nose Congestion, Mouth Pain, Mouth Swelling, Throat Pain, Throat Swelling, Other Respiratory: negative: Cough, Dry, Shortness of Breath, Hemoptysis, SOB with Excertion, Pleuritic Pain, Sputum, Wheezing Cardiovascular: negative: chest pain, palpitations, orthopnea, paroxysmal nocturnal dyspnea, edema, light headedness, other Gastrointestinal: negative: Nausea, Vomiting, Abdominal Pain, Diarrhea, Constipation, Melena, Hematochezia, Other Genitourinary: negative: Dysuria, Frequency, Incontinence, Hematuria, Retention , Other Musculoskeletal: negative: Neck Pain, Shoulder Pain, Arm Pain, Back Pain, Hand Pain, Leg Pain, Foot Pain, Other - Medications/Allergies Allergies/Adverse Reactions: Allergies Allergy/AdvReac Type Severity Reaction Status Date / Time No Known Allergies Allergy Verified 06/12/18 23:29 Medications: Current Medications Acetaminophen (Tylenol) 650 mg PO Q4H PRN PRN Reason: Headache/Fever or Mild Pain Hydrocodone Bitart/Acetaminophen ([place] 5/325) 1 tab PO Q4H PRN PRN Reason: Moderate Pain (4-6) Al Hydroxide/Mg Hydroxide (Maalox) 30 ml PO Q6H PRN PRN Reason: Heartburn or Indigestion Albuterol/Ipratropium (Duoneb) 3 ml NEB [id number] JOSE F Last Admin: 06/14/18 06:22 Dose: 3 ml Artificial Tears (Tears Naturale) 0 drop EA EYE PRN PRN PRN Reason: Dry Eyes Aspirin (Ecotrin) 81 mg PO DAILY [facility] Last Admin: 06/14/18 07:44 Dose: 81 mg Calcium Carbonate (Tums) 1,000 mg PO Q4H PRN PRN Reason: Heartburn or Indigestion Docusate Sodium (Colace) 100 mg PO BID [facility] Last Admin: 06/14/18 07:51 Dose: Not Given Famotidine (Pepcid) 20 mg PO BID [facility] Last Admin: 06/14/18 07:43 Dose: 20 mg Guaifenesin (Mucinex) 600 mg PO Q12HR [facility] Last Admin: 06/14/18 07:44 Dose: 600 mg Guaifenesin (Robitussin Sf) 200 mg PO Q4H PRN PRN Reason: Cough Hydralazine HCl (Apresoline) 10 mg SLOW IVP Q4H PRN PRN Reason: SBP Greater Than 180 Levofloxacin 750 mg/ Device 150 mls @ 100 mls/hr IVPB Q24HR [facility] Last Admin: 06/13/18 23:18 Dose: 150 mls Piperacillin Sod/Tazobactam (Sod 3.375 gm/ Sodium Chloride) 100 mls @ 200 mls/ hr IVPB 0200,0800,1400,2000 [facility] Last Admin: 06/14/18 07:42 Dose: 100 mls Loperamide HCl (Imodium) 2 mg PO PRN PRN PRN Reason: Diarrhea/Loose Stools Loratadine (Claritin) 10 mg PO DAILYPRN PRN PRN Reason: Sinus Symptoms Lorazepam (Ativan) 1 mg SLOW IVP WILLCALL [facility] Magnesium Hydroxide (Milk Of Magnesium) 30 ml PO DAILYPRN PRN PRN Reason: Constipation Mineral Oil/White Petrolatum (Eucerin Cream) 0 gm TOP BIDPRN PRN PRN Reason: Dry Skin Nitroglycerin (Nitrostat) 0.4 mg PO Q5MIN PRN PRN Reason: Chest Pain Ondansetron HCl (Zofran Odt) 4 mg PO Q6H PRN PRN Reason: Nausea/Vomiting Ondansetron HCl (Zofran) 4 mg IVP Q6H PRN PRN Reason: Nausea/Vomiting Phenol (Chloraseptic Lizella 180 Ml Bot) 0 ml PO PRN PRN PRN Reason: Sore Throat Saccharomyces Boulardii (Florastor) 250 mg PO DAILY [facility] Last Admin: 06/14/18 07:44 Dose: 250 mg Senna (Senokot) 2 tab PO HSPRN PRN PRN Reason: Constipation Sodium Chloride ([place] Nasal Lizella 0.65%) 0 ml EA NARE QIDPRN PRN PRN Reason: Nasal Congestion Sodium Chloride (Flush - Normal Saline) 10 ml IVF Q12HR [facility] Last Admin: 06/14/18 09:25 Dose: 10 ml Sodium Chloride (Flush - Normal Saline) 10 ml IVF PRN PRN PRN Reason: Saline Flush Temazepam (Restoril) 15 mg PO HSPRN PRN PRN Reason: Insomnia
[2018-06-15] MEDS: Piperacillin/Tazobactam 3.375 GM in Sodium Chloride 0.9% 100 ML IVPB SCH ×2 (02:52→08:32)
[2018-06-15] MEDS: Docusate 100 MG CAP PO SCH (08:33)
[2018-06-15] MEDS: Saccharomyces boulardii 250 MG CAP PO SCH (08:33)
[2018-06-15] MEDS: Aspirin 81 mg Enteric Coated Tablet PO SCH (08:33)
[2018-06-15] MEDS: Famotidine 20 MG TAB PO SCH (08:33)
[2018-06-15] MEDS: guaiFENesin ER 600 MG TAB PO SCH (08:33)
--- NOTE | 2018-06-15 08:56 | PRG ---
DATE OF SERVICE: 06/15/2018 He is doing well, had no complaints. PHYSICAL EXAMINATION: VITAL SIGNS: Temperature 98.6, pulse 103, respirations 18, O2 sat 92%, blood pressure 125/68. HEENT: Unremarkable. NECK: No JVD. LUNGS: Diminished breath sounds right base, left side clear. CARDIAC: S1 and S2 regular. ABDOMEN: Soft, nontender. EXTREMITIES: No edema. Lung biopsy demonstrated adenocarcinoma. The specimen was so necrotic pathologist could not tell if this is related to the initial lung cancer he had 6 years ago or if this is new. No labs were done today. ASSESSMENT: 1. Postobstructive pneumonia. 2. Adenocarcinoma of the right middle lobe with metastasis to the liver and mediastinal lymph nodes. PLAN: This is stage IV lung cancer. He will need to be evaluated by Oncology for chemo. His IV ant ibiotics can be stopped and he can be placed on oral Augmentin for the next 10 days. He is stable fo r discharge to home from my standpoint. His follow up will not need to be with the Oncology team.
[2018-06-15] MEDS ORDERED: Amoxicillin/Potassium Clav 875 MG TAB PO SCH (09:00)
[2018-06-15 14:27] VITALS: BP 149/83; TEMP 97.5
--- NOTE | 2018-06-15 16:49 | DIS ---
DATE OF DISCHARGE: 06/15/2018 DISCHARGE DISPOSITION: Home. FOLLOWUP: Follow up with primary care physician, Dr. Alfredo in 1 week. Follow up with Oncology, Dr Asim Lerma in 2 weeks. Follow up with Dr. Benitez. The patient was seen and examined on the day of d ischarge. Denies any new complaints, no chest pain, shortness of breath, palpitations. DISCHARGE MEDICATIONS: Augmentin 875 mg twice a day, Mucinex 600 mg twice a day. BRIEF HOSPITAL COURSE: The patient is a 58-year-old male with left upper lobe adenocarcinoma status post left upper lobectomy in 2011, who presented to the hospital with fever, chills, and cough of 3 d ays' duration. Please refer to the history and physical for further details. The patient was admitted to the hospital with a diagnosis of sepsis secondary to pneumonia. CT scan of the chest showed significant mediastinal adenopathy as well as hepatic mass. He was seen by Pulmo kaur, Dr. Benitez. A bronchoscopy was performed. Pathology report was consistent with poorly differ entiated nonsmall cell carcinoma (favoring adenocarcinoma). He was seen by Oncology as well. MRI of the brain with and without contrast was negative for intracranial metastatic disease. He has been c leared by consultants for discharge. He will follow up with Oncology as outpatient. He will complet e 10-day course of Augmentin. FINAL DIAGNOSES: 1. Sepsis secondary to postobstructive pneumonia. 2. Poorly differentiated adenocarcinoma of the lung with metastasis. 3. Ongoing tobacco abuse. The patient was extensively counseled. 4. Coronary artery disease, status post stent placement to the proximal circumflex as well as distal RCA in 2011. 5. Acute hypoxic respiratory failure secondary to #1. 6. 20-30 pound weight loss. 7. History of lung adenocarcinoma, status post left upper lobectomy in 2011. 8. Severe protein calorie malnutrition. 9. Hyponatremia. Total time coordinating the discharge of this patient was 33 minutes.
== END 2018-06-15 14:43 | disposition home or self-care (01) | DRG 871 ==
LOC: ERS 19:31 → T4-A 22:24
PROVIDERS: ADMIT Internal Medicine Infectious Disease; ATTEND Internal Medicine Infectious Disease
PROC: 0BJ08ZZ Inspection of Tracheobronchial Tree, Via Natural or Artificial Opening Endoscopic (ICD-10-PCS; principal; 2018-06-13)
DX: A41.9 Sepsis, unspecified organism (principal); J18.9 Pneumonia, unspecified organism; J96.01 Acute respiratory failure with hypoxia; E43 Unspecified severe protein-calorie malnutrition; E87.1 Hypo-osmolality and hyponatremia; C78.7 Secondary malignant neoplasm of liver and intrahepatic bile duct; C34.12 Malignant neoplasm of upper lobe, left bronchus or lung; R59.0 Localized enlarged lymph nodes; R16.0 Hepatomegaly, not elsewhere classified; Z72.0 Tobacco use; I25.10 Atherosclerotic heart disease of native coronary artery without angina pectoris; Z98.61 Coronary angioplasty status; Z92.21 Personal history of antineoplastic chemotherapy; K21.9 Gastro-esophageal reflux disease without esophagitis; Z90.2 Acquired absence of lung [part of]; I25.2 Old myocardial infarction; J44.9 Chronic obstructive pulmonary disease, unspecified; Z79.82 Long term (current) use of aspirin; Z79.51 Long term (current) use of inhaled steroids
CPT/HCPCS: 36415; 70553; 71260; 80048; 80053; 81001; 85025; 85610; 85730; 88104; 88112; 88305; 88313; 94640; 94760; 96365; 96375; A4216; J1100; J1644; J1956; J2001; J2060; J2405; J2543; J2704; J3010; J3475; J7050; J7620

== ENCOUNTER 2018-08-13 08:39 | Day surgery (SDC) | payer OTHER ==
[2018-08-13] MEDS ORDERED: Sodium Chloride 0.9% 20 ML ONE (08:44)
[2018-08-13] MEDS ORDERED: Pembrolizumab 200 MG in Sodium Chloride 0.9% 250 ML 250 ML IV SCH (09:00)
[2018-08-13] MEDS ORDERED: PEMETREXED IVPB SCH ×2 (09:00)
[2018-08-13] MEDS ORDERED: PALONOSETRON HCL 0.05 MG/ML 5 ML VIAL IVP SCH (09:00)
[2018-08-13] MEDS ORDERED: Dexamethasone 10 MG/ML VIAL SLOW IVP SCH (09:00)
[2018-08-13] MEDS ORDERED: SODIUM CHLORIDE 0.9% IVPB SCH ×3 (09:00→10:15)
[2018-08-13] MEDS ORDERED: CARBOPLATIN IVPB SCH (10:15)
[2018-08-13 10:36] VITALS: BP 114/56; TEMP 99
== END 2018-08-13 13:21 | disposition home or self-care (01) ==
LOC: ONC/OP 08:39
PROVIDERS: ATTEND Internal Medicine Hematology & Oncology
DX: Z51.11 Encounter for antineoplastic chemotherapy (principal); C34.01 Malignant neoplasm of right main bronchus; C78.7 Secondary malignant neoplasm of liver and intrahepatic bile duct
CPT/HCPCS: 96375; 96413; 96417; J1100; J2469; J7050; J9045; J9271; J9305

== ENCOUNTER 2018-09-03 08:50 | Day surgery (SDC) | payer OTHER ==
[2018-09-03] MEDS ORDERED: Dexamethasone 10 MG/ML VIAL SLOW IVP SCH (10:15)
[2018-09-03] MEDS ORDERED: PALONOSETRON HCL 0.05 MG/ML 5 ML VIAL IVP SCH (10:15)
[2018-09-03] MEDS ORDERED: SODIUM CHLORIDE 0.9% IVPB SCH ×2 (11:00)
[2018-09-03] MEDS ORDERED: Pembrolizumab 200 MG in Sodium Chloride 0.9% 250 ML 250 ML IV SCH (11:00)
[2018-09-03] MEDS ORDERED: CARBOPLATIN IVPB SCH (11:00)
[2018-09-03] MEDS ORDERED: PEMETREXED IVPB SCH (11:00)
[2018-09-03 11:31] LABS: Albumin 3.7 g/dL (3.5-5.0)
[2018-09-03 11:32] LABS: Chloride 100 mmol/L (98-107)
[2018-09-03 11:33] LABS: Calcium 9.2 mg/dL (7.8-10.44); Potassium 4.6 mmol/L (3.5-5.1); Sodium 135 mmol/L (136-145)
[2018-09-03 11:34] LABS: Glucose 75 mg/dL (70-105); Protein, Total 7.7 g/dL (6.0-8.3)
[2018-09-03 11:35] LABS: Anion Gap 14 mmol/L (10-20); Carbon Dioxide 26 mmol/L (22-29)
[2018-09-03 11:36] LABS: Bilirubin, Total 0.3 mg/dL (0.2-1.2)
[2018-09-03 11:37] LABS: Alkaline Phosphatase 98 U/L (40-150); Calc. Creatinine Clearance 0 mL/min (70-130); Estimated GFR-MDRD Greater than 90; LDH 242 U/L (125-220)
[2018-09-03 11:38] LABS: BUN (Urea Nitrogen) 7 mg/dL (8.4-25.7)
[2018-09-03 11:39] LABS: AST (SGOT) 28 U/L (5-34)
[2018-09-03 11:40] LABS: ALT (SGPT) 21 U/L (8-55); Uric Acid 7.6 mg/dL (3.5-7.2)
[2018-09-03 12:16] LABS: Band 4 % (5-11); Eosinophils 1 % (0-10); Hemoglobin 12.7 g/dL (14.0-18.0); Lymphocytes 49 % (21-51); MDiff Complete? YES; Mean Corpuscular HGB CONC 33.1 g/dL (32.0-36.0); Mean Corpuscular Hemoglobin 29.1 pg (27.0-31.0); Mean Platelet Volume 7.3 fL (7.4-10.4); Monocytes 24 % (0-10); Neutrophil 22 % (42-75); Platelet Count 333 thou/uL (130-400); RBC Distribution Width 13.5 % (11.5-14.5); RBC Morphology Normal; Red Blood Cell (RBC) Count 4.36 mill/uL (4.70-6.10); White Blood Cell (WBC) Count 5.1 thou/uL (4.8-10.8)
[2018-09-03 12:43] VITALS: BP 101/56; TEMP 97.3
== END 2018-09-03 15:13 | disposition home or self-care (01) ==
LOC: ONC/OP 08:50
PROVIDERS: ATTEND Internal Medicine Hematology & Oncology
DX: Z51.11 Encounter for antineoplastic chemotherapy (principal); C34.01 Malignant neoplasm of right main bronchus; C78.7 Secondary malignant neoplasm of liver and intrahepatic bile duct
CPT/HCPCS: 83615; 84550; 85025; 96372; 96411; 96413; 96417; J1100; J2469; J7050; J9045; J9271; J9305

== ENCOUNTER 2018-09-24 09:57 | Day surgery (SDC) | payer OTHER ==
[2018-09-24] MEDS ORDERED: Dexamethasone 10 MG in Sodium Chloride 0.9% 50 ML IVPB SCH (10:30)
[2018-09-24] MEDS ORDERED: Cyanocobalamin 1000 MCG/ML VIAL SC SCH (10:30)
[2018-09-24] MEDS ORDERED: Folic Acid 1 MG TAB PO SCH (10:30)
[2018-09-24] MEDS ORDERED: Palonosetron HCl 0.25 MG in Sodium Chloride 0.9% 50 ML IVPB SCH (10:30)
[2018-09-24] MEDS ORDERED: Pembrolizumab 200 MG in Sodium Chloride 0.9% 250 ML 250 ML IV SCH (10:30)
[2018-09-24 10:33] VITALS: BP 108/63; TEMP 97.6
[2018-09-24] MEDS ORDERED: PEMETREXED IVPB SCH (10:45)
[2018-09-24] MEDS ORDERED: SODIUM CHLORIDE 0.9% IVPB SCH ×2 (10:45→11:30)
[2018-09-24] MEDS ORDERED: CARBOPLATIN IVPB SCH (11:30)
== END 2018-09-24 19:29 | disposition home or self-care (01) ==
LOC: ONC/OP 09:57
PROVIDERS: ATTEND Internal Medicine Hematology & Oncology
DX: Z51.11 Encounter for antineoplastic chemotherapy (principal); C34.01 Malignant neoplasm of right main bronchus; C78.7 Secondary malignant neoplasm of liver and intrahepatic bile duct; J44.9 Chronic obstructive pulmonary disease, unspecified; I25.2 Old myocardial infarction; F17.210 Nicotine dependence, cigarettes, uncomplicated; Z79.82 Long term (current) use of aspirin; Z79.02 Long term (current) use of antithrombotics/antiplatelets; Z79.899 Other long term (current) drug therapy
CPT/HCPCS: 36415; 80053; 82248; 83615; 84100; 84550; 96372; 96375; 96411; 96413; 96417; J1100; J2469; J3420; J7050; J9045

== ENCOUNTER 2018-10-05 07:33 | Outpatient (CLI) | payer OTHER ==
--- NOTE | 2018-10-05 11:54 | PET ---
PET CT: HISTORY: 58-year-old male with Stage IV adenocarcinoma of the right lung, left lung cancer, and liver mets. Ex am requested for restaging. Patient is undergoing chemotherapy. TECHNIQUE: PET scanning with CT attenuation correction is performed from the base of the brain through the proxi mal thighs following the intravenous administration of 12.4 mCi F18-FDG. Imaging was performed after an uptake interval of 49 minutes. COMPARISON: PET CT dated 08/02/18. FINDINGS: There is continued hypermetabolic activity in the mediastinal lymph nodes with interval decrease in t he SUV levels, which measure 8.8 in the right paratracheal/superior mediastinal lymph nodes (previous ly 9.2) and 7.2 in the subcarinal region (previously 10.4). The hypermetabolic right middle lobe mass has a SUV of 11.8 (previously 12). No new hypermetabolic lesions are seen in the neck, chest, abdome n, or pelvis. There has been interval resolution of the hypermetabolic left upper lobe mass and the abnormal lympha denopathy seen on the previous study. No hypermetabolic liver, adrenal, or skeletal lesions are seen. There is physiologic activity in the GI and tracts, heart, and visualized portions of the brain. The CT scan used for attenuation correction demonstrates no evidence of pleural effusions or ascites. IMPRESSION: Partial response to therapy with interval improvement and incomplete resolution of hypermetabolic les ions since the previous exam of 08/02/18. POS: [facility]
== END 2018-10-05 07:34 | disposition home or self-care (01) ==
LOC: PET 07:33
PROVIDERS: ATTEND Internal Medicine Hematology & Oncology
DX: C34.90 Malignant neoplasm of unspecified part of unspecified bronchus or lung (principal); C78.7 Secondary malignant neoplasm of liver and intrahepatic bile duct
CPT/HCPCS: 78815; A9552

== ENCOUNTER 2018-10-17 13:03 | Outpatient (CLI) | payer OTHER ==
--- NOTE | 2018-10-17 16:16 | MRI ---
MRI OF BRAIN WITH AND WITHOUT CONTRAST: 10/17/18 COMPARISON: 06/14/18. HISTORY: Malignant neoplasm of right main stem bronchus. Headache. Evaluate for metastases. TECHNIQUE: Brain MRI is performed with and without intravenous gadolinium administration. Multisequential, multi planar imaging is performed. FINDINGS: No hemorrhage on the axial gradient echo sequence. The calvarium has a normal T1 marrow signal intensity. Midline brain parenchymal structures are unrem arkable. No parenchymal mass, mass effect or midline shift. Brain volume is age appropriate. Cortical faith-whi te matter differentiation is preserved. Ventricles and sulci are patent and symmetric. No significant T2 or FLAIR white matter hyperintensities. Central arterial flow voids are maintained. Absent restricted diffusion. Minimal mucosal disease of the paranasal sinuses. Adequate mastoid air cell aeration. No pathologic enhancement of the brain parenchyma. IMPRESSION: No pathologic enhancement of the brain parenchyma. POS: [facility]
== END 2018-10-17 13:04 | disposition home or self-care (01) ==
LOC: BICMRI 13:03
PROVIDERS: ATTEND Internal Medicine Hematology & Oncology
DX: C34.01 Malignant neoplasm of right main bronchus (principal)
CPT/HCPCS: 70553

== ENCOUNTER → 2018-10-18 | Day surgery (SDC) | payer OTHER ==
[~2018-10-18] MED LIST changes: +CARBOPLATIN IVPB SCH; +Dexamethasone 10 MG/ML VIAL SLOW IVP SCH; +Folic Acid 1 MG TAB PO SCH; -ISOVUE-370 76%-LOCM 1 ML ONE; +PALONOSETRON HCL 0.05 MG/ML 5 ML VIAL IVP SCH; +PEMETREXED IVPB SCH; +Palonosetron HCl 0.25 MG in Sodium Chloride 0.9% 50 ML IVPB SCH; +Pembrolizumab 200 MG in Sodium Chloride 0.9% 250 ML 250 ML IV SCH; +SODIUM CHLORIDE 0.9% IVPB SCH; +Sodium Chloride 0.9% 20 ML ONE
[2018-10-18 17:06] VITALS: BP 117/66; TEMP 97.5
== END ==
LOC: ONC/OP 11:34
PROVIDERS: ATTEND Internal Medicine Hematology & Oncology
DX: Z51.11 Encounter for antineoplastic chemotherapy (principal); C34.01 Malignant neoplasm of right main bronchus; C78.7 Secondary malignant neoplasm of liver and intrahepatic bile duct; I25.2 Old myocardial infarction; J44.9 Chronic obstructive pulmonary disease, unspecified; Z79.899 Other long term (current) drug therapy; Z79.02 Long term (current) use of antithrombotics/antiplatelets
CPT/HCPCS: 70553; 80053; 82248; 83615; 84100; 84550; 96375; 96413; 96417; J1100; J2469; J7050; J9045; J9271; J9305

== ENCOUNTER 2018-11-09 06:53 | Day surgery (SDC) | payer OTHER ==
[2018-11-08 16:46] VITALS: BMI 19.0
--- NOTE | 2018-11-09 12:06 | OP ---
DATE OF PROCEDURE: 11/09/2018 INDICATION FOR PROCEDURES: Anemia of unknown origin. PROCEDURES PERFORMED: Esophagogastroduodenoscopy (diagnostic) and colonoscopy with polypectomy. DESCRIPTION OF PROCEDURE: After the risks and benefits of the procedures were explained to the patient including risks of bleeding, infection, perforation, reactions to anesthesia, aspiration, and/or pain, informed consent was obtained. The patient was then taken to the endoscopy suite, where deep sedation was administered via propofol and anesthesia support. Once adequate sedation was achieved, the standard gastroscope was introduced into the mouth with intubation of the esophagus, stomach, and the proximal small intestine with the findings listed below. Upon completion of this portion of the procedure, all equipment was removed and the patient's bed was rotated approximately 180 degrees in preparation for colonoscopy. After a digital rectal examination was performed, the standard colonoscope was introduced into the rectum and advanced to the cecum with mild difficulty due to strict angulation within the sigmoid colon but was amenable to manual abdominal pressure. The quality of the prep was fair within the right colon that could not be improved despite aggressive irrigation and suctioning. The prep at this point would be considered adequate for the evaluation of mucosal lesions greater than 5 mm in size, but the lesions less than 5 mm in size could have been missed. The patient tolerated the procedures well with no immediate perioperative complications. EGD FINDINGS: Esophagus: Normal-appearing mucosa was seen in the proximal, mid, and distal esophagus. Both the diaphragmatic pinch and GE junction were well seen at 40 cm past the incisors. There was no evidence of erosions, ulcerations, mass, lesions, or active/recent bleeding. Stomach: Upon initial evaluation of the stomach normal-appearing mucosa was seen in the gastric cardia, fundus, body, greater curvature, antrum, and incisura, however with manipulation of the scope, the mucosa exhibited increased friability with the oozing of blood from any mucosal surface that the gastroscope put pressure on. Given no distinct lesion or target for cauterization, no intervention was performed. Otherwise, there was no evidence of ulcerations, mass, or lesions. Duodenum: Normal-appearing mucosa was seen in both the duodenal bulb and second portion of the duodenum. There was no evidence of erosions, ulcerations, mass, lesions, or active/recent bleeding. IMPRESSION: 1. Increased friability of the gastric mucosa, most likely due to either medications/chemotherapy administration with minimal oozing of blood (this could potentially contribute to the patient's anemia). 2. Otherwise, normal upper endoscopy. COLONOSCOPY FINDINGS: Digital rectal exam: Small external hemorrhoids were seen on external examination. Colon findings: Despite multiple attempts, the terminal ileum could not be intubated for evaluation of the distal small bowel; however, normal-appearing mucosa was seen at the ileocecal valve, appendiceal orifice, and within the cecum itself. Scattered diverticula were seen within the ascending, transverse, and descending, characterizes approximately 5 to 6 in number that were small in size; however, upon evaluation the mucosa within the sigmoid colon, multiple small and large diverticula were seen without any evidence of mucosal breakdown. Otherwise, normal mucosa was seen in the ascending, transverse, and descending colon. A 1.5 to 2 cm pedunculated polyp was seen in the sigmoid colon and completely removed with snare cautery polypectomy. Given the patient's anticoagulation, a hemoclip x1 was placed with good hemostasis achieved. Normal-appearing mucosa was seen within the rectum. Small internal hemorrhoids were seen on rectal retroflexion. IMPRESSION: 1. Fair colonic prep interfering with visualization of the right colon that was inadequate for the evaluation of mucosal lesions less than 5 mm in size. 2. Pancolonic diverticulosis but most especially within the sigmoid colon (characterized as [id number]). 3. A 1.5 to 2 cm sigmoid colon polyp, status post snare cautery polypectomy and hemoclip placement x1. 4. Most small internal and external hemorrhoids. 5. No etiology for the patient's anemia was seen during this portion of the examination. RECOMMENDATIONS: 1. We will follow up on the polypectomy results with repeat colonoscopy interval recommended approximately within the next 6 to 12 months given inadequate visualization of the right colon. 2. Would monitor for GI bleeding in the post procedure period given the patient was taken clopidogrel as recently as 1 to 2 days ago. 3. We would follow up with the Oncology Service with a more likely explanation for his anemia at this point being the chemotherapy and inflammation of the upper GI tract related to chemotherapy administration. 4. We will continue to trend hemoglobin and hematocrit and monitor while on chemotherapy. 5. We would consider capsule endoscopy in the future if the patient's hemoglobin and hematocrit continues to down trend despite more conservative measures. 6. We will place the patient on omeprazole 20 mg daily as part of mucosal protection of the upper GI tract. Job ID: [id number]
[2018-11-09] MEDS ORDERED: Glycopyrrolate 0.2 MG/ML 5 ML SYRINGE ONE (16:34)
[2018-11-09] MEDS ORDERED: PROPOFOL 200 MG/20 ML VIAL ONE (16:34)
[2018-11-09] MEDS ORDERED: Lidocaine 1% PF 5 ML VIAL ONE (16:34)
[2018-11-09] MEDS ORDERED: PHENYLEPHRINE-NS 100 MCG/ML 10 ML SYRINGE ONE (16:34)
[2018-11-09] MEDS ORDERED: ePHEDrine/0.9% NaCl/PF SYRINGE 50 mg/10 ml ONE (16:34)
== END 2018-11-09 10:55 | disposition home or self-care (01) ==
LOC: SDC 06:53
PROVIDERS: ATTEND Internal Medicine
PROC: 0DJ08ZZ Inspection of Upper Intestinal Tract, Via Natural or Artificial Opening Endoscopic (ICD-10-PCS; principal; 2018-11-09)
PROC: 0DBN8ZZ Excision of Sigmoid Colon, Via Natural or Artificial Opening Endoscopic (ICD-10-PCS; principal; 2018-11-09)
DX: D12.5 Benign neoplasm of sigmoid colon (principal); K64.4 Residual hemorrhoidal skin tags; K57.30 Diverticulosis of large intestine without perforation or abscess without bleeding; D64.9 Anemia, unspecified; Z79.82 Long term (current) use of aspirin; Z79.02 Long term (current) use of antithrombotics/antiplatelets; Z79.899 Other long term (current) drug therapy
CPT/HCPCS: 88305; J2001; J2704

== ENCOUNTER 2018-11-22 09:00 | Day surgery (SDC) | payer OTHER ==
[2018-11-22 09:12] VITALS: BP 110/60; TEMP 98.1
[2018-11-22] MEDS ORDERED: Pembrolizumab 200 MG in Sodium Chloride 0.9% 250 ML 250 ML IV SCH (09:15)
== END 2018-11-22 10:52 | disposition home or self-care (01) ==
LOC: ONC/OP 09:00
PROVIDERS: ATTEND Internal Medicine Hematology & Oncology
DX: Z51.12 Encounter for antineoplastic immunotherapy (principal); C34.01 Malignant neoplasm of right main bronchus; C78.7 Secondary malignant neoplasm of liver and intrahepatic bile duct; I25.2 Old myocardial infarction; J44.9 Chronic obstructive pulmonary disease, unspecified; F17.200 Nicotine dependence, unspecified, uncomplicated; Z79.02 Long term (current) use of antithrombotics/antiplatelets; Z79.82 Long term (current) use of aspirin; Z79.899 Other long term (current) drug therapy
CPT/HCPCS: 36415; 80053; 82248; 83615; 84100; 84443; 84550; 96413; J7050; J9271

== ENCOUNTER 2018-12-13 00:40 | Day surgery (SDC) | payer OTHER ==
[2018-12-13] MEDS ORDERED: Pembrolizumab 200 MG in Sodium Chloride 0.9% 250 ML 250 ML IV SCH (02:00)
[2018-12-13 10:10] VITALS: BP 125/66
== END 2018-12-13 11:29 | disposition home or self-care (01) ==
LOC: ONC/OP 00:40
PROVIDERS: ATTEND Internal Medicine Hematology & Oncology
DX: Z51.12 Encounter for antineoplastic immunotherapy (principal); C34.01 Malignant neoplasm of right main bronchus; C78.7 Secondary malignant neoplasm of liver and intrahepatic bile duct; J44.9 Chronic obstructive pulmonary disease, unspecified; I25.2 Old myocardial infarction; F17.200 Nicotine dependence, unspecified, uncomplicated
CPT/HCPCS: 96413; J7050; J9271

== ENCOUNTER 2019-01-03 13:43 | Day surgery (SDC) | payer OTHER ==
[2019-01-03] MEDS ORDERED: Pembrolizumab 200 MG in Sodium Chloride 0.9% 250 ML 250 ML IV SCH (14:00)
[2019-01-03 14:24] VITALS: BP 117/69; TEMP 97.5
== END 2019-01-03 15:22 | disposition home or self-care (01) ==
LOC: ONC/OP 13:43
PROVIDERS: ATTEND Internal Medicine Hematology & Oncology
DX: Z51.12 Encounter for antineoplastic immunotherapy (principal); C34.01 Malignant neoplasm of right main bronchus; C78.7 Secondary malignant neoplasm of liver and intrahepatic bile duct; I25.2 Old myocardial infarction; J44.9 Chronic obstructive pulmonary disease, unspecified
CPT/HCPCS: 36415; 80053; 82248; 83615; 84100; 84443; 84550; 96413; J7050; J9271

== ENCOUNTER 2019-01-24 13:40 | Day surgery (SDC) | payer OTHER ==
[~2019-01-24 13:40] MED LIST changes: -CARBOPLATIN IVPB SCH; -Dexamethasone 10 MG/ML VIAL SLOW IVP SCH; -Folic Acid 1 MG TAB PO SCH; -PALONOSETRON HCL 0.05 MG/ML 5 ML VIAL IVP SCH; -PEMETREXED IVPB SCH; -Palonosetron HCl 0.25 MG in Sodium Chloride 0.9% 50 ML IVPB SCH; -SODIUM CHLORIDE 0.9% IVPB SCH; -Sodium Chloride 0.9% 20 ML ONE
[2019-01-24] MEDS ORDERED: Sodium Chloride 0.9% 20 ML ONE (13:48)
[2019-01-24 14:23] VITALS: BP 136/72; TEMP 97.7
== END 2019-01-24 15:17 | disposition home or self-care (01) ==
LOC: ONC/OP 13:40
PROVIDERS: ATTEND Internal Medicine Hematology & Oncology
DX: Z51.12 Encounter for antineoplastic immunotherapy (principal); C34.01 Malignant neoplasm of right main bronchus; C78.7 Secondary malignant neoplasm of liver and intrahepatic bile duct
CPT/HCPCS: 36415; 80053; 82248; 83615; 84100; 84550; 96413; J7050; J9271

== ENCOUNTER 2019-01-31 11:46 | Outpatient (CLI) | payer OTHER ==
--- NOTE | 2019-01-31 13:47 | PET ---
Exam: PET CT skull to mid thigh COMPARISON: 10/05/2018 HISTORY: Lung cancer with liver metastases TECHNIQUE: A PET/CT was performed from the skull to the mid thigh after administration of 12.3 millic uries of F-18 FDG. Evaluation was performed on a [employer] workstation. FINDINGS: NECK: No areas of hypermetabolic activity CHEST: There is an area of consolidation in the posterior aspect of the right middle lobe with a max SUV value of 6.4. This may have slightly improved compared to the prior examination. A hypermetabolic subcarinal lymph node has a max SUV value of 3.7. There are right hilar/pretracheal/ mediastinal lymph nodes with max SUV value of 11.4. ABDOMEN/PELVIS: No areas of hypermetabolic activity SKELETON: No areas of hypermetabolic activity CT images used for attenuation correction show increased density in the region of the right middle lo be mass and within the enlarged/hypermetabolic lymph nodes in the mediastinum. IMPRESSION: Slightly improved right middle lobe mass and hilar/mediastinal lymphadenopathy.
== END 2019-01-31 11:47 | disposition home or self-care (01) ==
LOC: PET 11:46
PROVIDERS: ATTEND Internal Medicine Hematology & Oncology
DX: C34.90 Malignant neoplasm of unspecified part of unspecified bronchus or lung (principal); C78.7 Secondary malignant neoplasm of liver and intrahepatic bile duct; R91.8 Other nonspecific abnormal finding of lung field; R59.0 Localized enlarged lymph nodes
CPT/HCPCS: 78815; A9552

== ENCOUNTER 2019-02-14 10:56 | Day surgery (SDC) | payer OTHER ==
[2019-02-14 12:25] VITALS: BP 110/59; TEMP 97.6
== END 2019-02-14 14:24 | disposition home or self-care (01) ==
LOC: ONC/OP 10:56
PROVIDERS: ATTEND Internal Medicine Hematology & Oncology
DX: Z51.12 Encounter for antineoplastic immunotherapy (principal); C34.01 Malignant neoplasm of right main bronchus; C78.7 Secondary malignant neoplasm of liver and intrahepatic bile duct
CPT/HCPCS: 36415; 80053; 82248; 83615; 84100; 84443; 84550; 96413; J7050; J9271

== ENCOUNTER 2019-03-07 10:16 | Day surgery (SDC) | payer OTHER ==
[2019-03-07 10:28] VITALS: BP 134/66; TEMP 97.6
[2019-03-07] MEDS ORDERED: Sodium Chloride 0.9% 20 ML ONE (11:46)
== END 2019-03-07 12:03 | disposition home or self-care (01) ==
LOC: ONC/OP 10:16
PROVIDERS: ATTEND Internal Medicine Hematology & Oncology
DX: Z51.12 Encounter for antineoplastic immunotherapy (principal); C34.01 Malignant neoplasm of right main bronchus; C78.7 Secondary malignant neoplasm of liver and intrahepatic bile duct
CPT/HCPCS: 96413; J7050; J9271

== ENCOUNTER 2019-03-28 14:10 | Day surgery (SDC) | payer OTHER ==
[2019-03-28] MEDS ORDERED: Sodium Chloride 0.9% 20 ML ONE ×2 (14:15→14:42)
[2019-03-28 15:12] VITALS: BP 117/68; TEMP 97.5
== END 2019-03-28 16:29 | disposition home or self-care (01) ==
LOC: ONC/OP 14:10
PROVIDERS: ATTEND Internal Medicine Hematology & Oncology
DX: Z51.12 Encounter for antineoplastic immunotherapy (principal); C34.01 Malignant neoplasm of right main bronchus; C78.7 Secondary malignant neoplasm of liver and intrahepatic bile duct
CPT/HCPCS: 96413; J7050; J9271

== ENCOUNTER 2019-04-18 13:38 | Day surgery (SDC) | payer OTHER ==
[2019-04-18 16:31] VITALS: BP 104/59
== END 2019-04-18 16:34 | disposition home or self-care (01) ==
LOC: ONC/OP 13:38
PROVIDERS: ATTEND Internal Medicine Hematology & Oncology
DX: Z51.12 Encounter for antineoplastic immunotherapy (principal); C34.01 Malignant neoplasm of right main bronchus; C78.7 Secondary malignant neoplasm of liver and intrahepatic bile duct
CPT/HCPCS: 96413; J7050; J9271

== ENCOUNTER 2019-05-09 10:11 | Day surgery (SDC) | payer OTHER ==
[2019-05-09] MEDS ORDERED: Sodium Chloride 0.9% 20 ML ONE ×2 (10:21→10:41)
[2019-05-09 15:44] VITALS: BP 126/69; TEMP 97.4
== END 2019-05-09 15:44 | disposition home or self-care (01) ==
LOC: ONC/OP 10:11
PROVIDERS: ATTEND Internal Medicine Hematology & Oncology
DX: Z51.12 Encounter for antineoplastic immunotherapy (principal); C34.01 Malignant neoplasm of right main bronchus; C78.7 Secondary malignant neoplasm of liver and intrahepatic bile duct
CPT/HCPCS: 36415; 84165; 96413; J7050; J9271

== ENCOUNTER 2019-06-10 20:42 | Inpatient (IN) | payer OTHER ==
[2019-06-10] MEDS ORDERED: Aspirin 81 mg Enteric Coated Tablet ONE (21:46)
[2019-06-10] MEDS ORDERED: methylPREDNISolone Sod Succ/PF 125 MG/2 ML VIAL ONE (21:46)
[2019-06-11 00:47] VITALS: BMI 16.2
[2019-06-11] MEDS ORDERED: Ondansetron PF 4 MG/2 ML Vial IVP PRN (01:26)
[2019-06-11] MEDS ORDERED: Ondansetron ODT 4 MG TAB SL PRN (01:26)
[2019-06-11] MEDS ORDERED: Acetaminophen 325 MG TAB PO PRN (01:26)
[2019-06-11] MEDS ORDERED: Bacteriostatic Water 30 ML VIAL FS PRN (01:27)
[2019-06-11] MEDS ORDERED: PROVENTIL INHALER 6.7 G (200 INHALATIONS) INH PRN (04:43)
--- NOTE | 2019-06-11 05:57 | HP ---
PRIMARY CARE PHYSICIAN: Anuradha lAfredo DO CODE STATUS: Full code. TIME OF EVALUATION: 03:40 a.m. CHIEF COMPLAINT: Shortness of breath. HISTORY OF PRESENT ILLNESS: A 59-year-old male patient with past medical history of coronary artery disease, hyperlipidemia, hypertension, lung cancer treated with chemo and surgery, COPD, came to the hospital after having severe gradually worsening shortness of breath with no clear triggers, no alleviating factors. Symptoms started around 3 p.m. The patient also had some cough with some sputum production. He was taking his medication at home, but he stated that they were not working anymore. There are no clear triggers, no alleviating factors. REVIEW OF SYSTEMS: All systems were reviewed and negative except for the findings mentioned above. PAST MEDICAL HISTORY: As mentioned in HPI. PAST SURGICAL HISTORY: Left lung tumor removed. PSYCHIATRIC HISTORY: No previous psychiatric history. SOCIAL HISTORY: The patient drinks socially every week. Former drug user, abuse marijuana. The patient smokes cigarettes on a daily basis, half a pack per day. FAMILY HISTORY: Reviewed and the patient has a history of mother with hypertension and cancer. Father with throat cancer. KNOWN ALLERGIES: No known drug allergies. REPORTED MEDICATIONS: 1. Albuterol. 2. Anoro Ellipta. 3. Aspirin. 4. Carvedilol. 5. [place]. 6. Ipratropium-albuterol. 7. Isosorbide. 8. Omeprazole. PHYSICAL EXAMINATION: VITAL SIGNS: On presentation, blood pressure 143/86, with heart rate 90, respiratory rate was 24, temperature 97.5, pain was 0/10, oxygen saturation was 100% on 4 L. GENERAL APPEARANCE: The patient is alert, oriented, no acute distress. The patient has slim body habitus. HEENT: Eyes, normal. Moist oral mucosae. Anicteric. No JVD. RESPIRATORY: Bilateral air entry is decreased. The patient has scattered wheezing, no rales. ABDOMEN: Soft. Normal bowel sounds. MUSCULOSKELETAL: Baseline range of motion and strength. SKIN: Warm and intact. No pallor. No rash. No redness. Capillary refill seems to be intact. NEUROLOGIC: No evidence of any new focal weakness. Cranial nerves seems to be intact. PSYCHIATRIC: The patient is in good mood. No anxiety. Optimal judgment. IMAGING DATA: EKG was reviewed. The patient has normal sinus rhythm with a rate of 95 with ID 144, QRS 84, QT corrected 459. Chest x-ray was reviewed. The patient has right hilar mass similar to before, streaky right basilar infiltrate with slightly more than the one on 06/03/2019 film. LABORATORY DATA: Labs were reviewed. The patient has white count 6.9, hemoglobin 15.2, MCV 101, platelet count 211. Chemistry was done. The patient has sodium 136, potassium 4.2, chloride 102, carbon dioxide 22, anion gap 16, BUN 15, GFR greater than 90, creatinine 0.8. Glucose 114, lactic acid 1.3. Uric acid 8.8. LFTs were negative. Beta-natriuretic peptide 1557, globulin 4.2. ASSESSMENT AND PLAN: The patient will be placed in the hospital with following medical problems: 1. Possible chronic obstructive pulmonary disease exacerbation. The patient has shortness of breath and cough, also associated with sputum production. The patient to be on nebs, steroids, and antibiotics. Most likely cause could be underlying pneumonia next to the lung cancer area. 2. Possible pneumonia associated with lung cancer lesions from malignancy. The patient has been started on antibiotics and we will monitor for now. We will adjust treatment as per sensitivity in cultures. 3. Deep venous thrombosis prophylaxis. 4. Lung cancer, has been receiving treatment as outpatient. This can be followed as outpatient. 5. Hyperlipidemia. Low-cholesterol diet is advised, reconcile home medications. 6. Uncontrolled hypertension with systolic blood pressure of 152. Reconcile home medications. Adjust treatment as needed. 7. History of coronary artery disease, is chronic, seems to be stable, reconcile home medications. 8. Hyperlipidemia. Low-cholesterol diet is advised. Reconcile home medications. 9. Deep venous thrombosis prophylaxis. Job ID: [id number]
[2019-06-11] MEDS: methylPREDNISolone Sod Succ/PF 125 MG/2 ML VIAL IVP SCH ×4 (06:19→23:46)
[2019-06-11] MEDS: Enoxaparin Sodium 40 MG/0.4 ML SYRINGE SC SCH (09:52)
[2019-06-11] MEDS: Aspirin 81 mg Enteric Coated Tablet PO SCH (09:52)
[2019-06-11] MEDS: Isosorbide Mononitrate (ER) 30 MG TAB PO SCH (09:52)
[2019-06-11] MEDS: Clopidogrel Bisulfate 75 MG TAB PO SCH (09:52)
[2019-06-11] MEDS: Carvedilol 6.25 MG TAB PO SCH (09:52)
--- NOTE | 2019-06-11 15:27 | PDOC.HOSPP ---
- Subjective Encounter Date: 06/11/19 Encounter Time: 15:00 Subjective: Feels "a bit better" now compared to admission; less cough; no nausea or vomiting; no fever today. Appetite decent. Has not been up and walking in the halls. - Objective Vital Signs & Weight: Vital Signs (12 hours) Temp Pulse Resp BP Pulse Ox 06/11/19 14:30 82 16 92 L 06/11/19 12:00 97.3 F L 79 18 104/64 100 06/11/19 11:08 84 16 97 06/11/19 07:23 97.5 F L 81 16 112/76 97 06/11/19 07:00 91 L 06/11/19 06:58 83 16 91 L 06/11/19 03:56 97.6 F 86 16 97/57 L 98 Weight Admit Weight 110 lb 3 oz Weight 110 lb 3 oz I&O: 06/10/19 06/11/19 06/12/19 06:59 06:59 06:59 Output Total 525 Balance -525 Result Diagrams: 06/12/19 05:03 06/12/19 05:03 Hospitalist ROS - Medication Medications: Active Medications Generic Name Dose Route Start Last Admin Trade Name Freq PRN Reason Stop Dose Admin Albuterol/Ipratropium 3 ml 06/11/19 06:30 06/11/19 14:30 Duoneb NEB 3 ml Q1SU-LD JOSE F Administration Aspirin 81 mg 06/11/19 09:00 06/11/19 09:52 Ecotrin PO 81 mg DAILY JOSE F Administration Carvedilol 12.5 mg 06/11/19 09:00 06/11/19 09:52 Coreg PO 12.5 mg DAILY JOSE F Administration Clopidogrel Bisulfate 75 mg 06/11/19 09:00 06/11/19 09:52 Plavix PO 75 mg DAILY JOSE F Administration Enoxaparin Sodium 40 mg 06/11/19 09:00 06/11/19 09:52 Lovenox SC 40 mg 0900 JOSE F Administration Levofloxacin 750 mg/ Device 150 mls @ 100 mls/hr 06/11/19 05:00 06/11/19 06: 18 IVPB 150 mls Q24HR JOSE F Administration Isosorbide Mononitrate 30 mg 06/11/19 09:00 06/11/19 09:52 Imdur Er PO 30 mg DAILY JOSE F Administration Methylprednisolone Sodium Succinate 60 mg 06/11/19 06:00 06/11/19 12:15 Solu-Medrol IVP 06/15/19 09:40 60 mg Q6HR JOSE F Administration Pantoprazole Sodium 40 mg 06/11/19 09:00 06/11/19 09:52 Protonix PO 40 mg DAILY JOSE F Administration Pneumococcal Polyvalent Vaccine 0.5 ml 06/11/19 21:00 06/11/19 07:26 Pneumovax 23 IM 06/11/19 21:01 Not Given .ONCE ONE - Exam General Appearance: awake alert General - other findings: Thin Eye: PERRL ENT: moist mucosa Neck: supple, no lymphadenopathy Heart: RRR Respiratory - other findings: Decreased bs bases Gastrointestinal: soft, non-tender Skin: no rashes Neurological: no focal deficits Psychiatric: A&O x 3 Hosp A/P (1) Postobstructive pneumonia Code(s): J18.9 - PNEUMONIA, UNSPECIFIED ORGANISM Status: Acute (2) COPD (chronic obstructive pulmonary disease) Status: Chronic (3) H/O malignant neoplasm of lung Code(s): Z85.118 - PERSONAL HISTORY OF MALIGNANT NEOPLASM OF BRONCHUS AND LUNG Status: Chronic (4) Protein-calorie malnutrition, moderate Code(s): E44.0 - MODERATE PROTEIN-CALORIE MALNUTRITION Status: Chronic (5) Tobacco abuse Code(s): Z72.0 - TOBACCO USE Status: Chronic (6) Acute respiratory failure with hypoxia Code(s): J96.01 - ACUTE RESPIRATORY FAILURE WITH HYPOXIA Status: Acute - Plan incentive spirometry, DVT proph w/lovenox Pulm - Suspect post-obstructive pneumonia in the context of lung cancer. Continue supportive care/abx/nebs/steroids/oxygen. Next Keytruda scheduled for 06/19. Increase activity/encourage OOB/walking. Cards - trop neg x 3; continue home ASA/Plavix/Coreg
[2019-06-12] MEDS: methylPREDNISolone Sod Succ/PF 125 MG/2 ML VIAL IVP SCH ×2 (05:14→12:19)
[2019-06-12 05:29] LABS: #Lymphocytes 0.7 thou/uL (1.20-3.40); #Monocytes 0.4 thou/uL (0.11-0.59); #Neutrophils 8.9 thou/uL (1.40-6.50); %Basophils 0.1 % (0.0-1.0); %Eosinophils 0.2 % (0.0-10.0); %Lymphocytes 6.7 % (21.0-51.0); %Monocytes 3.7 % (0.0-10.0); %Neutrophils 89.4 % (42.0-75.0); Mean Corpuscular HGB CONC 32.9 g/dL (32.0-36.0); Mean Platelet Volume 7.7 fL (7.4-10.4); Platelet Count 214 thou/uL (130-400); RBC Distribution Width 13.1 % (11.5-14.5); Red Blood Cell (RBC) Count 4.23 mill/uL (4.70-6.10)
[2019-06-12 05:50] LABS: Anion Gap 10 mmol/L (10-20); BUN (Urea Nitrogen) 15 mg/dL (8.4-25.7); Calc. Creatinine Clearance 73 mL/min (70-130); Calcium 8.4 mg/dL (7.8-10.44); Carbon Dioxide 26 mmol/L (22-29); Chloride 102 mmol/L (98-107); Estimated GFR-MDRD Greater than 90; Glucose 131 mg/dL (70-105); Potassium 3.9 mmol/L (3.5-5.1); Sodium 134 mmol/L (136-145)
[2019-06-12] MEDS: Carvedilol 6.25 MG TAB PO SCH (09:28)
[2019-06-12] MEDS: Clopidogrel Bisulfate 75 MG TAB PO SCH (09:28)
[2019-06-12] MEDS: Aspirin 81 mg Enteric Coated Tablet PO SCH (09:28)
[2019-06-12] MEDS: Isosorbide Mononitrate (ER) 30 MG TAB PO SCH (09:28)
[2019-06-12] MEDS: Enoxaparin Sodium 40 MG/0.4 ML SYRINGE SC SCH (09:29)
[2019-06-12 11:46] VITALS: TEMP 97.6
[2019-06-12 16:25] VITALS: BP 119/72
--- NOTE | 2019-06-13 04:27 | DIS ---
DATE OF ADMISSION: 06/10/2019 DATE OF DISCHARGE: 06/12/2019 PRIMARY CARE PHYSICIAN: Anuradha Alfredo DO CHIEF COMPLAINT: Shortness of breath. PRINCIPAL DIAGNOSES ON ADMISSION: 1. Possible chronic obstructive pulmonary disease exacerbation. 2. Possible pneumonia associated with lung cancer lesions from malignancy. DISCHARGE DIAGNOSES: 1. 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 2. Chronic obstructive pulmonary disease with acute exacerbation. 3. Dyslipidemia. 4. Essential hypertension. 5. Coronary artery disease, stable. 6. Dyslipidemia. 7. Gastroesophageal reflux disease. 8. Postobstructive pneumonia in the context of pulmonary malignancy. 9. Pulmonary malignancy, poorly-differentiated non-small cell adenocarcinoma of the lung. HOSPITAL COURSE: Mr. 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 He is presently on treatment regimen with Keytruda under the care of Dr. Lerma. He presented on this occasion to the emergency department on 06/10/2019 complaining of worsening shortness of breath. Medical comorbidities include coronary artery disease, dyslipidemia, dyslipidemia, essential hypertension, and COPD. The patient noted interval cough with sputum production, no relief with nebulizer trials at home. Imaging done in the hospital included a chest x-ray, 06/10/19, showing right hilar mass similar to prior, with streaky right basilar infiltrate, more prominent when compared to recent chest x-ray. On 06/03/2019, patient underwent CT angiogram of the chest at that time showing no evidence of pulmonary embolus, but the presence of bulky mediastinal right hilar mass. This was unchanged compared to prior. Mr. Troncoso was noted to be hypoxic at the time of hospital admission in the ER, 85 % on room air, improving to saturation 100% on 4 L per nasal cannula. White blood cell count was notably normal at 6.9. Mr. Troncoso is admitted to the hospital with oxygen supplementation, empiric antibiotic therapy, as well as treatment for presumptive decompensated COPD. Mr. Troncoso showed clear clinical improvement with subsequent weaning of oxygen successfully prior to discharge. He will continue a course of antibiotics, suspect postobstructive pneumonia in this gentleman with advanced lung cancer. Exercise tolerance has improved, ambulating in the halls of the hospital prior to discharge. Appetite also notably improved relative to admission. On the day of discharge, sitting up, eating breakfast, tells me he is feeling much better. Lungs with improved aeration, decreased breath sounds in basilar areas bilaterally. Breath sounds somewhat distant, as baseline. Heart, regular rate and rhythm. The patient is thin, no edema. MEDICATIONS AT DISCHARGE: As follows; 1. Levaquin 750 mg p.o. daily for 3 additional days. 2. Prednisone 10 mg p.o. daily for 3 additional days. The remainder of the home medications are unchanged from admission. These include; 1. Aspirin 81 mg p.o. once daily. 2. Carvedilol 12.5 mg, takes one-half tablet p.o. twice daily. 3. Plavix 75 mg p.o. once daily. 4. Isosorbide mononitrate 30 mg p.o. once daily. 5. Omeprazole 20 mg p.o. once daily. 6. ProAir HFA 2 puffs q.6 hours p.r.n. shortness of breath. 7. Hydrocodone/acetaminophen 5/325 one p.o. daily p.r.n. pain. 8. DuoNeb t.i.d. p.r.n. shortness of breath. 9. Anoro Ellipta one dose unit inhaled daily. DIET: Regular, as tolerated. ACTIVITY: As tolerated. FOLLOWUP: Follow up with Dr. Alfredo in [place]. Patient to schedule for routine post hospital followup. Follow up 06/19/2019 for Oncology, per prior schedule. CONDITION ON DISCHARGE: Improved. TIME SPENT: Time spent on discharge, planning/care coordination 40 minutes. Job ID: [id number] [facility]
--- NOTE | 2019-06-14 10:29 | PQF ---
[employer] Operator [employer] DEACON Adler JR MARIO MONTILLA [id number] [id number] [id number] CLINICAL DOCUMENTATION CLARIFICATION FORM: POST DISCHARGE Addendum to original discharge summary date: ____ Late entry note date: __ DATE: 06/14/2019 ATTN: MARIO MONTILLA Please exercise your independent, professional judgment in responding to the clarification form. Clinical indicators are provided on the bottom of this form for your review Please check appropriate box(s): [ ] Acute Respiratory Failure: [ ] with Hypoxia[ ] with Hypercapnia [ ] Acute On Chronic Respiratory Failure: [ ] with Hypoxia [ ] with Hypercapnia [ x ] Acute Respiratory Failure due to: (etiology) Post obstructive pneumonia [ ] ARDS (Acute Respiratory Distress Syndrome) [ ] Chronic Respiratory Failure only [ ] with Hypoxia [ ] with Hypercapnia [ ] Hypoxia [ ] Other diagnosis [ ] Unable to determine In addition, please specify: Present on Admission (POA): [ ] Yes [ ] No [ ] Unable to determine For continuity of documentation, please document condition throughout progress notes and discharge summary. Thank You. CLINICAL INDICATORS - SIGNS / SYMPTOMS / LABS -85% on room air- DS,06/12, Beba Torrez MD -noted to be hypoxic at the time of hospital admission-DS,06/12, Beba Torrez MD -100% on 4 L per nasal cannula-DS,06/12, Beba Torrez MD -Poorly differentially non-small cell adenocarcinoma of the lung-DS,06/12, Beba Torrez MD RISK FACTORS -Decompendated COPD-DS,06/12, Beba Torrez MD -Postobstructive pneumonia-DS,06/12, Beba Torrez MD TREATMENTS: -4L nasal cannula -DS,06/12, Beba Torrez MD -[place],06/12, Beba Torrez MD (This form is maintained as a part of the permanent medical record) 2015 [employer]. All Rights Reserved Agustín Buckley [not provided] [not provided] MTDD
== END 2019-06-12 17:35 | disposition home or self-care (01) | DRG 193 ==
LOC: ERS 20:42 → 2NO 21:54 → OBSVTOIN 21:54
PROVIDERS: ADMIT Hospitalist; ATTEND Hospitalist
DX: J18.9 Pneumonia, unspecified organism (principal); J96.21 Acute and chronic respiratory failure with hypoxia; J44.1 Chronic obstructive pulmonary disease with (acute) exacerbation; C34.90 Malignant neoplasm of unspecified part of unspecified bronchus or lung; C78.7 Secondary malignant neoplasm of liver and intrahepatic bile duct; E44.0 Moderate protein-calorie malnutrition; Z68.1 Body mass index [BMI] 19.9 or less, adult; J44.0 Chronic obstructive pulmonary disease with (acute) lower respiratory infection; I10 Essential (primary) hypertension; I25.10 Atherosclerotic heart disease of native coronary artery without angina pectoris; E78.5 Hyperlipidemia, unspecified; K21.9 Gastro-esophageal reflux disease without esophagitis; F17.210 Nicotine dependence, cigarettes, uncomplicated; I25.2 Old myocardial infarction
CPT/HCPCS: 36415; 80048; 84484; 85025; 90471; 90732; 94640; 96374; G0009; J1650; J1956; J2930; J7620

== ENCOUNTER 2019-08-29 09:06 | Outpatient (CLI) | payer OTHER ==
--- NOTE | 2019-08-29 11:50 | PET ---
Nuclear medicine FDG PET/CT: (Positron emission tomography and computed tomography) DATE: 08/29/2019 HISTORY: 59-year-old male with lung cancer with liver metastasis. Subsequent PET scan after chemotherapy. ICD- 10: C 34.01 and C 78.7. COMPARISON: 05/28/2019 TECHNIQUE: IV injection of F-18 fluorodeoxyglucose (FDG) dose: 10.3 mCi. PET scan and attenuation correction CT performed from skull base to proximal thighs. FINDINGS: SUV (standard uptake values) numbers given are maximum SUVs. QCLR used. Neck: No suspicious hypermetabolic activity. CHEST: Significant interval decrease in volume of bulky right mediastinal malignant lymphadenopathy. Current ly approximately 6 x 3.5 cm. Interval decrease in SUV from previous of 11 to current SUV of 7.0. Previously, this crossed slightly to the left of midline at the precarinal level. Currently, this stops short of the midline. A 2 x 1 cm left prevascular space mediastinal lymph node only has SUV of 2.2, not significantly taylor ed. Right middle lobe consolidation remains, with air bronchogram and calcific density material which may or may not represent aspirated barium, unchanged. Within this consolidation, the SUV has worsened from previous 8.8 to current 10.4. Right hilar enlargement only has borderline SUV, 2.9. Diffuse interstitial infiltrates bilaterally, especially at the lung bases, have slightly worsened. T his could represent pulmonary interstitial edema perhaps due to congestive heart failure. The other possibility is lymphangitic carcinomatosis. New tiny right pleural effusion without increased SUV. Sl ight worsening of cardiomegaly. ABDOMEN: New finding of small amount of ascites, most concentrated in right upper quadrant and left upper quad rant, including Morison's pouch and paracolic gutters. No abnormal hypermetabolic activity. Pelvis: Moderate to large volume of free fluid within pelvic cavity. No abnormal hypermetabolic activity. Diffuse edema throughout the subcutaneous fat, new since previous study. IMPRESSION: 1) partial versus mixed response to therapy: 2) Interval improvement in malignant right mediastinal lymphadenopathy. 3.) interval increase in uptake in the right middle lobe consolidation. Uncertain whether this repres ents pneumonia or neoplastic tumor activity. 4) new ascites, new anasarca, and new tiny right pleural effusion. 5) interval worsening of diffuse bilateral interstitial pulmonary densities: Possibilities are either pulmonary interstitial edema due to congestive heart failure or fluid volume overload, versus lymphangitic carcinomatosis. The former is favored.
== END 2019-08-29 09:07 | disposition home or self-care (01) ==
LOC: PET 09:06
PROVIDERS: ATTEND Internal Medicine Hematology & Oncology
DX: C34.90 Malignant neoplasm of unspecified part of unspecified bronchus or lung (principal); C78.7 Secondary malignant neoplasm of liver and intrahepatic bile duct; R18.8 Other ascites; R60.1 Generalized edema; J90 Pleural effusion, not elsewhere classified; R91.8 Other nonspecific abnormal finding of lung field; R59.0 Localized enlarged lymph nodes
CPT/HCPCS: 36415; 78815; 80053; 82248; 83615; 84100; 84443; 84550; A9552